=== PATIENT | female | born 1970 | race Caucasian/White ===

== ENCOUNTER 2023-10-07 19:06 | Emergency (ER) | payer BC, OTHER ==
[2023-10-07 20:25] LABS: BASOPHILS # (AUTO) 0.1 10^3/uL (0.0-0.1); BASOPHILS % (AUTO) 0.7 %; EOSINOPHILS # (AUTO) 0.1 10^3/uL (0.0-0.7); EOSINOPHILS % (AUTO) 1.6 %; HCT - HEMATOCRIT 34.3 % (37.0-47.0); HGB - HEMOGLOBIN 11.8 g/dL (12.0-16.0); LYMPHOCYTES # (AUTO) 2.3 10^3/uL (1.5-3.5); LYMPHOCYTES % (AUTO) 31.8 %; MEAN CORPUSCULAR HEMOGLOBIN 29.1 pg (27.0-31.0); MEAN CORPUSCULAR HGB CONC 34.4 g/dL (32.0-36.0); MEAN CORPUSCULAR VOLUME 84.7 fL (81.0-99.0); MEAN PLATELET VOLUME 10.2 fL (7.9-10.8); NEUTROPHILS # (AUTO) 3.7 10^3/uL (1.5-6.6); NEUTROPHILS % (AUTO) 51.8 %; PLT - PLATELET COUNT 247 10^3/uL (130-450); RED BLOOD COUNT 4.05 10^6/uL (4.20-5.40); RED CELL DISTRIBUTION WIDTH 11.6 % (12.0-15.0); WHITE BLOOD COUNT 7.1 x10^3/uL (4.8-10.8)
--- NOTE | 2023-10-07 20:25 | ED Physician Documentation ---
PD HPI LOWER EXT INJURY - Stated complaint Stated Complaint: LT FOOT SWELLING - Chief complaint Chief Complaint: Ext Problem - History obtained from History obtained from: Patient - Additional information Additional information: Patient comes to the emergency department chief complaint of left lower extremity edema. She states has been going on about 4 days and seems to clear a bit when she props her foot. The swelling seems almost gone when she gets up in the morning after sleeping. The patient denies any chest pain or shortness of breath. She has a history of PVCs and has been noticing the occasional PVC lately. She states that her body shop technician PA wanted her to get blood work in the morning but then because she was having more PVCs she was advised to come to the emergency department instead. The patient had an echo earlier this year which looked good. She has also had a event monitoring. Patient states she is very active and in fact they [place] past [place] today. No other complaints at this time. No history of DVT or PE. The patient is not a smoker and never has been. No recent immobility. PD PAST MEDICAL HISTORY - Past Medical History Past Medical History: Yes - Past Surgical History Past Surgical History: Yes - Allergies Allergies/Adverse Reactions: Allergies Allergy/AdvReac Type Severity Reaction Status Date / Time No Known Drug Allergies Allergy Verified 10/07/23 19:20 - Social History Does the pt smoke?: No Smoking Status: Never smoker Does the pt drink ETOH?: No Does the pt have substance abuse?: No - Immunizations Immunizations are current?: Yes - POLST Patient has POLST: No PD ED PE NORMAL - Vitals Vital signs reviewed: Yes - General General: Alert and oriented X 3, No acute distress, Well developed/nourished - HEENT HEENT: Atraumatic, PERRL, EOMI, Moist mucous membranes - Neck Neck: Supple, no meningeal sign - Cardiac Cardiac: RRR, Other (1 out of 6 systolic murmur.) - Respiratory Respiratory: No respiratory distress, Clear bilaterally - Abdomen Abdomen: Soft, Non tender, Non distended - Derm Derm: Normal color, Warm and dry, No rash - Extremities Extremities: No deformity, Other (Slight edema of left lower extremity compared with right. No calf tenderness.) - Neuro Neuro: Other (Alert, grossly intact.) - Psych Psych: Normal mood, Normal affect Results - Vitals Vitals: Oxygen O2 Source Room air - EKG (time done) 1948 EKG releavant findings:: EKG personally interpreted by author of this note. Relevant findings are: Rate: Rate (enter#) (87) Rhythm: NSR, LAE Baring: Normal Intervals: Normal MA QRS: Normal Ischemia: Normal ST segments Compare to prior EKG: Old EKG unavailable Computer interpretation: Agree with computer - Labs Labs: Laboratory Tests 10/07/23 10/07/23 10/07/23 20:21 20:21 20:21 WBC 7.1 RBC 4.05 L Hgb 11.8 L Hct 34.3 L MCV 84.7 MCH 29.1 MCHC 34.4 RDW 11.6 L Plt Count 247 MPV 10.2 Neut # (Auto) 3.7 Lymph # (Auto) 2.3 [place] # (Auto) 1.0 Eos # (Auto) 0.1 Baso # (Auto) 0.1 Absolute Nucleated RBC 0.00 Nucleated RBC % 0.0 D-Dimer < 200.0 L Sodium 139 Potassium 3.7 Chloride 105 Carbon Dioxide 29 Anion Gap 5.0 L BUN 17 Creatinine 0.6 Estimated GFR (MDRD) 104 Glucose 109 H Calcium 9.4 Total Bilirubin 0.7 AST 26 ALT 24 Alkaline Phosphatase 77 Total Protein 5.9 L Albumin 3.7 Globulin 2.2 Albumin/Globulin Ratio 1.7 Lipase 32 - Rads (name of study) US LLE Relevant Findings:: Final report received, See rad report (neg) PD Medical Decision Making - ED course Complexity details: reviewed results, re-evaluated patient, considered differential, d/w patient ED course: EKG, labs, and US all were negative. I have d/w pt that she will need to follow up with her doctor to discuss her palpitations and leg swelling in the setting of her hyperthyroidism. We have discussed the usual indications for return. Departure - Departure Disposition: 01 Home, Self Care Clinical Impression: Lower extremity edema Condition: Stable Instructions: ED Leg Swelling Unilateral Comments: Your labs look great, and your ultrasound is negative. It is not clear what has caused her intermittent swelling only in the left leg in the setting of your hyperthyroidism. If you notice that after couple of weeks your swelling is continuing to worsen or you begin to have any pelvic symptoms, you should talk to your doctor about getting some pelvic imaging making sure that you do not have a tumor or some other issue that is causing pressure on the veins that come from your left leg. Forms: PCP List Discharge Date/Time: 10/07/23 21:50
[2023-10-07 20:43] LABS: ALBUMIN 3.7 g/dL (3.2-5.5); ALBUMIN/GLOBULIN RATIO 1.7 (1.0-2.2); BILIRUBIN,TOTAL 0.7 mg/dL (0.2-1.0); CALCIUM 9.4 mg/dL (8.5-10.3); CREATININE 0.6 mg/dL (0.6-1.3); POTASSIUM 3.7 mmol/L (3.5-4.5); TOTAL PROTEIN 5.9 g/dL (6.4-8.9)
[2023-10-07 21:56] VITALS: BP 125/58; O2SAT 98
--- NOTE | 2023-10-07 22:23 | Ultrasound Report ---
PROCEDURE: Duplex Ext Veins Left INDICATIONS: pain/swelling TECHNIQUE: Real-time imaging, as well as color and pulse Doppler interrogation, were performed of the lower extr emity deep veins from the inguinal ligament to the popliteal fossa. Attempted visualization of the ca lf veins was performed. COMPARISON: None. FINDINGS: The deep veins are normally compressible, and free of intraluminal thrombus. Color and pu lse Doppler demonstrate normal phasic intraluminal flow. There is normal augmentation response to di stal compression maneuver. IMPRESSION: No deep venous thrombosis of the visualized lower extremity. Reviewed by: Daysi Walden MD on 10/07/2023 10:22 PM PDT Approved by: Daysi Walden MD on 10/07/2023 10:22 PM PDT Station ID: [id number]
== END 2023-10-07 21:50 | disposition home or self-care (01) ==
LOC: ED 19:06
DX: R60.0 Localized edema (principal); E05.90 Thyrotoxicosis, unspecified without thyrotoxic crisis or storm
CPT/HCPCS: 36415; 80053; 83690; 85025; 85379; 93005; 99283; 99284